=== PATIENT | male | born 1990 | race African-American/Black ===

== ENCOUNTER 2020-06-03 00:25 | Emergency (ER) | payer SELFPAY ==
[~2020-06-03] VITALS: Ht 185.4 cm; Wt 100.0 kg
[2020-06-03 00:29] VITALS: BP 118/71; Ht 185.4 cm; Wt 100.0 kg
== END 2020-06-03 01:07 | disposition home or self-care (01) ==
LOC: D.ER 00:25
DX: S51.812A Laceration without foreign body of left forearm, initial encounter (principal); W26.0XXA Contact with knife, initial encounter; Y93.9 Activity, unspecified; Y92.9 Unspecified place or not applicable

== ENCOUNTER 2020-06-20 16:47 | Emergency (ER) | payer SELFPAY ==
[~2020-06-20] VITALS: Ht 185.4 cm; Wt 90.9 kg
[2020-06-20 17:09] VITALS: BP 138/78; Ht 185.4 cm; Wt 90.9 kg
== END 2020-06-20 17:29 | disposition home or self-care (01) ==
LOC: D.ER 16:47
DX: Z48.02 Encounter for removal of sutures (principal)